=== PATIENT | male | born 1940 | race Caucasian/White ===

== ENCOUNTER 2017-05-26 18:12 | Emergency (ER) | payer MEDICARE, BC ==
[2017-05-26 18:12] VITALS: O2SAT 97
[2017-05-26 18:51] LABS: BASOPHILS % (AUTO) 1 % (0-3); EOSINOPHILS % (AUTO) 3 % (0-9); HEMATOCRIT 41 % (39-53); MEAN CORPUSCULAR HGB CONC 34.4 gm/dl (32.0-36.0); MEAN CORPUSCULAR VOLUME 92 fL (80-100); MONOCYTES % (AUTO) 6.6 % (0-12)
[2017-05-26 19:00] LABS: CREATININE 1.22 mg/dl (0.80-1.30); POTASSIUM 4.4 mMol/L (3.5-5.1)
[2017-05-26 19:22] LABS: APPEARANCE,URINE Cloudy; BILIRUBIN,URINE NEGATIVE (NEGATIVE); COLOR,URINE Red; GLUCOSE, URINE (UA) NEGATIVE (NEGATIVE); KETONES,URINE NEGATIVE (NEGATIVE); LEUKOCYTE ESTERASE ,URINE NEGATIVE (NEGATIVE); NITRATE,URINE NEGATIVE (NEGATIVE); OCCULT BLOOD,URINE 3+ (NEG-TRACE); PH,URINE 5.5; UROBILINOGEN,URINE 0.2 (0.2-1.0 EU)
[2017-05-26 19:27] LABS: RBC,URINE TNTC (0-3AV/HPF); WBC,URINE 0-2 (0-5AV/HPF)
[2017-05-26 19:33] VITALS: BP 147/82; PULSE 90; RESP 20; TEMP 96.9
== END 2017-05-26 20:39 | disposition home or self-care (01) | DRG 696 ==
LOC: ED 18:12
DX: R31.9 Hematuria, unspecified (principal); E11.9 Type 2 diabetes mellitus without complications; Z79.4 Long term (current) use of insulin
CPT/HCPCS: 36415; 74176; 80048; 81001; 85025; 85610; 85730; 99282

== ENCOUNTER 2017-11-16 16:07 | Observation (INO) | payer MEDICARE, BC ==
[2017-11-16] MEDS: PREDNISONE 20 MG TAB PO SCH (17:44)
[2017-11-16] MEDS: ALBUTEROL/IPRATROPIUM 1 VIAL SOL INH SCH ×2 (17:45→21:42)
[2017-11-16] MEDS: SODIUM CHLORIDE 0.9% FLUSH 10 ML SOL IV SCH ×3 (17:57→23:38)
[2017-11-16] MEDS: NOVOLOG FLEXPEN SC SCH ×2 (18:27→21:31)
[2017-11-16] MEDS ORDERED: INSULIN LISPRO SC SCH (18:30)
[2017-11-16] MEDS ORDERED: ATORVASTATIN 10 MG TAB PO SCH (21:00)
[2017-11-16] MEDS: METOPROLOL TARTRATE 50 MG TAB PO SCH (21:29)
[2017-11-16] MEDS: METFORMIN HYDROCHLORIDE 500 MG TAB PO SCH (21:30)
[2017-11-16] MEDS: HUMULIN N U SC SCH (21:32)
[2017-11-16] MEDS: [UNRECOGNIZED DRUG - OTHER] SC SCH (21:32)
[2017-11-17] MEDS: ALBUTEROL/IPRATROPIUM 1 VIAL SOL INH SCH ×2 (03:36→09:14)
[2017-11-17 07:52] VITALS: BP 161/87; RESP 18; TEMP 97.8
[2017-11-17] MEDS: NOVOLOG FLEXPEN SC SCH (08:03)
[2017-11-17] MEDS: [UNRECOGNIZED DRUG - OTHER] SC SCH (08:05)
[2017-11-17] MEDS: HUMULIN N U SC SCH (08:05)
[2017-11-17] MEDS: SODIUM CHLORIDE 0.9% FLUSH 10 ML SOL IV SCH (08:10)
[2017-11-17] MEDS ORDERED: HUMALOG PEN 100 U/ML SC SCH (09:00)
[2017-11-17] MEDS ORDERED: FUROSEMIDE 40 MG TAB PO SCH (09:00)
[2017-11-17] MEDS ORDERED: LOSARTAN POTASSIUM 50 MG TAB PO SCH (09:00)
[2017-11-17] MEDS: PREDNISONE 20 MG TAB PO SCH (09:10)
[2017-11-17] MEDS: METFORMIN HYDROCHLORIDE 500 MG TAB PO SCH (09:12)
[2017-11-17] MEDS: METOPROLOL TARTRATE 50 MG TAB PO SCH (09:12)
[2017-11-17 10:08] VITALS: PULSE 87; O2SAT 96
== END 2017-11-17 11:25 | disposition home or self-care (01) | DRG 153 ==
LOC: ACUTE CARE 16:12
PROVIDERS: ADMIT Family Medicine; ATTEND Family Medicine
DX: J06.9 Acute upper respiratory infection, unspecified (principal); E66.2 Morbid (severe) obesity with alveolar hypoventilation; R09.02 Hypoxemia; E11.9 Type 2 diabetes mellitus without complications; I10 Essential (primary) hypertension; G47.30 Sleep apnea, unspecified; R05 Cough; R06.2 Wheezing; R06.02 Shortness of breath; Z79.4 Long term (current) use of insulin
CPT/HCPCS: 82962; 94150; 94640; 94664; 94762; J1815; A9270; A9270-GY